=== PATIENT | male | born 1960 | race Caucasian/White ===

== ENCOUNTER 2020-04-20 20:34 | Emergency (ER) | payer OTHER ==
[2020-04-20 20:41] VITALS: BP 165/89; PULSE 68; RESP 20; TEMP 98.5
--- NOTE | 2020-04-20 20:43 | ED ---
Upper Extremity HPI - General Chief Complaint: Extremity Injury, Upper Stated Complaint: RT shoulder pain Time Seen by Provider: 04/20/20 20:43 Source: patient Mode of arrival: ambulatory Limitations: no limitations - History of Present Illness Initial Comments: 59-year-old male presenting to the emergency room with a chief complaint of right shoulder pain. Patient states the incident occurred about one hour prior to arrival. States he was reaching out to grab a toy when he felt a sudden onset of pain in his right shoulder. Patient states any movement of the right arm no exacerbation pain. Patient is concerned for possible dislocation of the right shoulder. He states he did have previous dislocation about 40 years ago. States this feels somewhat like it. He denies any numbness or tingling. Reports most of the pain is located along the posterior deltoid region. - Related Data Allergies Allergy/AdvReac Type Severity Reaction Status Date / Time No Known Allergies Allergy Verified 04/20/20 20:41 Review of Systems ROS Statement: Those systems with pertinent positive or pertinent negative responses have been documented in the HPI. ROS Other: All systems not noted in ROS Statement are negative. Past Medical History Past Medical History: Coronary Artery Disease (CAD), Hyperlipidemia, Hypertension History of Any Multi-Drug Resistant Organisms: None Reported Past Surgical History: Heart Catheterization With Stent, Orthopedic Surgery Past Psychological History: No Psychological Hx Reported Smoking Status: Never smoker Past Alcohol Use History: Occasional Past Drug Use History: None Reported General Exam Limitations: no limitations General appearance: alert, in no apparent distress Head exam: Present: atraumatic, normocephalic, normal inspection Eye exam: Present: normal appearance, PERRL, EOMI Pupils: Present: normal accommodation ENT exam: Present: normal exam, normal oropharynx, mucous membranes moist, TM's normal bilaterally, normal external ear exam Neck exam: Present: normal inspection, full ROM. Absent: tenderness Respiratory exam: Present: normal lung sounds bilaterally. Absent: respiratory distress, wheezes, rales, rhonchi Cardiovascular Exam: Present: regular rate, normal rhythm, normal heart sounds. Absent: systolic murmur, diastolic murmur Extremities exam: Present: normal inspection, tenderness (Localized tenderness to the posterior deltoid region), normal capillary refill, other (+2 ulnar and radial pulses bilaterally. Sensation intact in bilateral upper extremities.). Absent: full ROM (Limited range of motion with abduction due to pain), pedal edema, joint swelling, calf tenderness Back exam: Present: normal inspection, full ROM. Absent: tenderness, CVA tenderness (R), CVA tenderness (L) Neurological exam: Present: alert, oriented X3 Psychiatric exam: Present: normal affect, normal mood Skin exam: Present: warm, dry, intact, normal color Course Vital Signs 04/20/20 20:38 Temperature 98.5 F Pulse Rate 68 Respiratory 20 Rate Blood Pressure 165/89 O2 Sat by Pulse 96 Oximetry Medical Decision Making - Medical Decision Making 59-year-old male presenting to the emergency department with a chief complaint right shoulder pain. On physical examination, patient has localized tenderness to the posterior deltoid region with limited range of motion due to pain. He is otherwise neurovascularly intact. X-ray is unremarkable. I do suspect possible injury to the rotator cuff. I advised the patient to follow-up with duplication specialist. Patient will be discharged with Tylenol [address] or operate heavy machinery when taking medication. Return parameters those is a patient of singing group. Case discussed with physician. Disposition Clinical Impression: Right shoulder injury, Right shoulder pain Disposition: HOME SELF-CARE Condition: Stable Instructions (If sedation given, give patient instructions): Rotator Cuff Injury (ED), Shoulder Sprain (ED) Additional Instructions: Follow-up with duplication specialist. Return to emergency department if symptoms worsen. Alternate between Tylenol and Motrin for pain control. Is patient prescribed a controlled substance at d/c from ED?: No Referrals: Nonstaff,Physician [REFERRING] - 1-2 days Wan Snider DO [Doctor of Osteopathic Medicine] - 1-2 days Time of Disposition: 21:30
--- NOTE | 2020-04-20 21:11 | XR ---
EXAMINATION TYPE: XR shoulder complete RT DATE OF EXAM: 04/20/2020 COMPARISON: NONE HISTORY: Pain TECHNIQUE: 3 views FINDINGS: I see no fracture nor dislocation. Joint spaces are normal. There are no pathologic calcifi cations. IMPRESSION: Negative right shoulder exam.
[2020-04-20] MEDS ORDERED: ACET/COD 300 MG/30 MG STARTER PACK 6 TAB BTL PO STA (21:29)
== END 2020-04-20 21:36 | disposition home or self-care (01) ==
LOC: EC 20:34
DX: S49.91XA Unspecified injury of right shoulder and upper arm, initial encounter (principal); W18.39XA Other fall on same level, initial encounter; Y93.89 Activity, other specified
CPT/HCPCS: 99283